=== PATIENT | male | born 1965 | race Caucasian/White ===

== ENCOUNTER → 2017-07-17 | Outpatient (CLI) | payer BC | END | disposition home or self-care (01) | LOC: RAD 09:57 | PROVIDERS: ATTEND Specialist | DX: Z45.2 Encounter for adjustment and management of vascular access device (principal); C20 Malignant neoplasm of rectum | CPT/HCPCS: 36569; 76937; 77001; C1751 ==

== ENCOUNTER 2017-10-25 10:52 | Day surgery (SDC) | payer BC ==
[~2017-10-25] VITALS: Ht 182.9 cm; Wt 65.5 kg
[2017-10-25 11:20] VITALS: BP 100/69
[2017-10-25] MEDS ORDERED: SODIUM CHLORIDE 0.9% 1,000 ML IV SCH (11:23)
[2017-10-25] MEDS ORDERED: CEFAZOLIN PMX 1GM/50ML 50 ML IV ONE (11:30)
[2017-10-25] MEDS ORDERED: PROC10TA78 PO (11:31)
[2017-10-25] MEDS ORDERED: VENL75CA PO (11:31)
[2017-10-25] MEDS ORDERED: dexamethasone PO (11:31)
[2017-10-25] MEDS ORDERED: GABA300C10 PO (11:31)
[2017-10-25] MEDS ORDERED: OXYC60TA8 PO (11:31)
[2017-10-25] MEDS ORDERED: ONDA8TAB9 PO (11:31)
[2017-10-25] MEDS ORDERED: fentanyl patch TD (11:31)
[2017-10-25] MEDS ORDERED: METO10TA82 PO (11:31)
[2017-10-25] MEDS ORDERED: NALOXONE 1 MG/ML, 2ML ONE (12:20)
[2017-10-25] MEDS ORDERED: FLUMAZENIL 0.1 MG/1 ML, 5ML ONE (12:20)
[2017-10-25] MEDS ORDERED: MIDAZOLAM 1 MG/ML, 5ML ONE (12:20)
[2017-10-25] MEDS ORDERED: FENTANYL PF 100 MCG/2ML ONE ×2 (12:20)
[2017-10-25] MEDS ORDERED: LIDOCAINE/PF 1%, 30ML ONE (12:23)
[2017-10-25] MEDS ORDERED: LIDOCAINE-MPF 1%, 2ML ONE (12:48)
[2017-10-25] MEDS ORDERED: DIPHENHYDRAMINE 50 MG/ML, 1ML ONE (12:49)
== END 2017-10-25 14:05 ==
LOC: OUT 10:52
PROVIDERS: ATTEND Specialist
DX: Z45.2 Encounter for adjustment and management of vascular access device (principal); C20 Malignant neoplasm of rectum; I10 Essential (primary) hypertension; F41.9 Anxiety disorder, unspecified; F32.9 Major depressive disorder, single episode, unspecified; Z86.718 Personal history of other venous thrombosis and embolism; Z90.49 Acquired absence of other specified parts of digestive tract; Z98.890 Other specified postprocedural states
CPT/HCPCS: 36561; 76937; 77001; 99156; 99157; C1894; J0690; J2250; J3010; J3490; C1788; J1200; J1642; J2310; J7030